=== PATIENT | female | born 1945 | race Hispanic/Latino ===

== ENCOUNTER 2020-11-24 19:05 | Inpatient (IN) | payer OTHER, MEDICARE ==
[~2020-11-24] VITALS: Ht 157.5 cm; Wt 89.8 kg
[2020-11-24] MEDS ORDERED: ASPIRIN 325 MG TABLET ONE (19:58)
[2020-11-24 20:01] LABS: BASOPHILS % (AUTO) 0.5 % (0.0-5.0); EOSINOPHILS % (AUTO) 3.3 % (0.0-8.0); HEMATOCRIT 33.1 % (36-48); LYMPHOCYTES % (AUTO) 17.6 % (21.0-51.0); MEAN CORPUSCULAR HEMOGLOBIN 29.9 pg (27.0-33.0); MEAN CORPUSCULAR HGB CONC 32.9 g/dL (32.0-36.0); MEAN CORPUSCULAR VOLUME 90.9 fL (79-99); MONOCYTES % (AUTO) 8.1 % (3.0-13.0); PLATELET COUNT (AUTO) 351 K/uL (130-400); RED BLOOD CELL COUNT(AUTO) 3.64 MIL/uL (4.00-5.50); RED CELL DISTRIBUTION WIDTH 15.9 % (11.0-15.5); WHITE BLOOD COUNT (AUTO) 8.6 K/uL (4.8-10.8)
[2020-11-24 20:09] LABS: CREATININE 1.1 mg/dL (0.5-1.5); POTASSIUM 3.8 mmol/L (3.5-5.1)
[2020-11-24 20:13] LABS: INR 0.94 (0.85-1.15); PROTHROMBIN TIME 10.3 SEC (9.6-11.6)
[2020-11-24 20:14] LABS: PARTIAL THROMBOPLASTIN TIME 24.8 SEC (26.3-35.5)
[2020-11-24 20:15] LABS: B-TYPE NATRIURETIC PEPTIDE 45 pg/mL (0-100)
[2020-11-24 20:19] LABS: ALBUMIN 3.8 g/dL (3.5-5.0); BILIRUBIN,TOTAL 1.1 mg/dL (0.2-1.0); TOTAL PROTEIN, SERUM 6.8 g/dL (6.0-8.3)
[2020-11-25 00:08] LABS: CREATINE KINASE, TOTAL 36 U/L (21-232); GAMMA GLUTAMYL TRANSFERASE 363 U/L (5-85)
[2020-11-25] MEDS ORDERED: ACETAMINOPHEN 325 MG TAB PO PRN ×2 (00:30)
[2020-11-25] MEDS ORDERED: DiphenhydrAMINE HCL 50 MG/ML VIAL IV PRN (00:30)
[2020-11-25] MEDS ORDERED: ONDANSETRON 4MG INJ IV PRN (00:30)
[2020-11-25] MEDS ORDERED: NITROGLYCERIN 0.4 MG SL TAB SL PRN (00:30)
[2020-11-25] MEDS ORDERED: MAG/ALUM/SIMETH 30 ML UDCUP PO PRN (00:30)
[2020-11-25] MEDS ORDERED: LACTATED RINGERS 1000ML 1,000 ML IV SCH (00:30)
[2020-11-25] MEDS ORDERED: LACTULOSE 20 GM/30 ML UDCUP PO PRN (00:30)
[2020-11-25] MEDS ORDERED: DIPHENHYDRAMINE HCL 25 MG CAPSULE PO PRN (00:30)
[2020-11-25] MEDS ORDERED: GUAIFENESIN-DM 200/20 MG 10 ML PO PRN (00:30)
[2020-11-25] MEDS ORDERED: DEXTROSE 50%-WATER 50 ML DISP.SYRIN IV PRN (03:45)
[2020-11-25] MEDS ORDERED: GLUCAGON 1MG KIT 1 MG ML IM PRN (03:45)
[2020-11-25] MEDS ORDERED: ZOSYN 3.375GM+NS 50ML 50 ML IV ONE (04:41)
[2020-11-25 04:56] LABS: BASOPHILS % (AUTO) 0.6 % (0.0-5.0); EOSINOPHILS % (AUTO) 4.2 % (0.0-8.0); HEMATOCRIT 32.9 % (36-48); LYMPHOCYTES % (AUTO) 14.3 % (21.0-51.0); MEAN CORPUSCULAR HEMOGLOBIN 30.3 pg (27.0-33.0); MEAN CORPUSCULAR HGB CONC 33.7 g/dL (32.0-36.0); MEAN CORPUSCULAR VOLUME 89.9 fL (79-99); MONOCYTES % (AUTO) 10.6 % (3.0-13.0); NEUTROPHILS % (AUTO) 69.9 % (40.0-77.0); PLATELET COUNT (AUTO) 339 K/uL (130-400); RED BLOOD CELL COUNT(AUTO) 3.66 MIL/uL (4.00-5.50); RED CELL DISTRIBUTION WIDTH 15.9 % (11.0-15.5); WHITE BLOOD COUNT (AUTO) 4.8 K/uL (4.8-10.8)
[2020-11-25 05:30] LABS: ALBUMIN 3.9 g/dL (3.5-5.0); BILIRUBIN,TOTAL 2.9 mg/dL (0.2-1.0); CREATININE 0.8 mg/dL (0.5-1.5); POTASSIUM 4.6 mmol/L (3.5-5.1); TOTAL PROTEIN, SERUM 6.6 g/dL (6.0-8.3)
[2020-11-25] MEDS ORDERED: LACTATED RINGERS 1000ML 1,000 ML IV ONE ×2 (06:09→22:10)
[2020-11-25 07:55] VITALS: BP 121/63
[2020-11-25 11:00] VITALS: BP 121/61
[2020-11-25] MEDS: INSULIN HUMULIN R 100 UNIT/ML 3ML SQ SCH ×3 (11:30→21:00)
[2020-11-25] MEDS: ZOSYN 3.375GM+NS 50ML 50 ML IV SCH ×2 (13:00→22:26)
[2020-11-25] MEDS: CEFTRIAXONE 1G VIAL IV SCH (13:32)
[2020-11-25] MEDS: FAMOTIDINE 20MG VIAL IV SCH ×2 (13:32→22:27)
[2020-11-25] MEDS: HEPARIN 5,000 UNIT VIAL SQ SCH ×2 (14:04→22:28)
[2020-11-25 18:43] LABS: ALBUMIN 3.9 g/dL (3.5-5.0); BILIRUBIN,TOTAL 4.2 mg/dL (0.2-1.0); CREATININE 0.8 mg/dL (0.5-1.5); POTASSIUM 3.8 mmol/L (3.5-5.1)
[2020-11-25 19:05] VITALS: BP 137/41
[2020-11-25 23:29] VITALS: BP 100/59
[2020-11-26] VITALS (8 sets, daily range): BP systolic 110–141; BP diastolic 49–76
[2020-11-26] MEDS: CEFTRIAXONE 1G VIAL IV SCH ×2 (02:00→13:35)
[2020-11-26 04:48] LABS: BASOPHILS % (AUTO) 1.3 % (0.0-5.0); EOSINOPHILS % (AUTO) 12.7 % (0.0-8.0); HEMATOCRIT 32.3 % (36-48); MEAN CORPUSCULAR HEMOGLOBIN 29.1 pg (27.0-33.0); MEAN CORPUSCULAR HGB CONC 32.2 g/dL (32.0-36.0); MEAN CORPUSCULAR VOLUME 90.2 fL (79-99); MONOCYTES % (AUTO) 10.3 % (3.0-13.0); NEUTROPHILS % (AUTO) 53.2 % (40.0-77.0); PLATELET COUNT (AUTO) 298 K/uL (130-400); RED BLOOD CELL COUNT(AUTO) 3.58 MIL/uL (4.00-5.50); RED CELL DISTRIBUTION WIDTH 15.7 % (11.0-15.5); WHITE BLOOD COUNT (AUTO) 3.8 K/uL (4.8-10.8)
[2020-11-26 05:21] LABS: ALBUMIN 3.4 g/dL (3.5-5.0); BILIRUBIN,TOTAL 2.8 mg/dL (0.2-1.0); CREATININE 0.9 mg/dL (0.5-1.5); POTASSIUM 3.4 mmol/L (3.5-5.1); TOTAL PROTEIN, SERUM 6.3 g/dL (6.0-8.3)
[2020-11-26] MEDS: ZOSYN 3.375GM+NS 50ML 50 ML IV SCH ×3 (06:02→20:51)
[2020-11-26] MEDS: INSULIN HUMULIN R 100 UNIT/ML 3ML SQ SCH ×4 (06:38→20:53)
[2020-11-26 07:17] LABS: HEPATITIS B CORE IGM Negative (Negative); HEPATITIS Bs ANTIGEN SCREEN P Negative (Negative)
[2020-11-26] MEDS: HEPARIN 5,000 UNIT VIAL SQ SCH ×2 (09:50→20:52)
[2020-11-26] MEDS: FAMOTIDINE 20MG VIAL IV SCH ×2 (09:51→20:52)
[2020-11-26] MEDS ORDERED: LIDOCAINE HCL-MPF 1% 2ML VIAL IV PRN (11:30)
[2020-11-26] MEDS ORDERED: POTASSIUM CHLORIDE 20MEQ/100ML 100 ML IV PRN (11:30)
[2020-11-27] VITALS (27 sets, daily range): BP systolic 111–160; BP diastolic 40–114
[2020-11-27] MEDS ORDERED: LACTATED RINGERS 1000ML 1,000 ML IV ONE (04:05)
[2020-11-27] MEDS: ZOSYN 3.375GM+NS 50ML 50 ML IV SCH ×3 (04:21→21:17)
[2020-11-27 05:43] LABS: BASOPHILS % (AUTO) 0.3 % (0.0-5.0); EOSINOPHILS % (AUTO) 5.7 % (0.0-8.0); LYMPHOCYTES % (AUTO) 14.4 % (21.0-51.0); MEAN CORPUSCULAR HEMOGLOBIN 29.4 pg (27.0-33.0); MEAN CORPUSCULAR HGB CONC 32.7 g/dL (32.0-36.0); MEAN CORPUSCULAR VOLUME 89.9 fL (79-99); MONOCYTES % (AUTO) 10.1 % (3.0-13.0); NEUTROPHILS % (AUTO) 69.2 % (40.0-77.0); PLATELET COUNT (AUTO) 305 K/uL (130-400); RED BLOOD CELL COUNT(AUTO) 3.67 MIL/uL (4.00-5.50); RED CELL DISTRIBUTION WIDTH 15.9 % (11.0-15.5)
[2020-11-27] MEDS: INSULIN HUMULIN R 100 UNIT/ML 3ML SQ SCH ×4 (06:25→21:00)
[2020-11-27 06:26] LABS: ALBUMIN 3.3 g/dL (3.5-5.0); BILIRUBIN,TOTAL 4.1 mg/dL (0.2-1.0); CREATININE 1.1 mg/dL (0.5-1.5); POTASSIUM 3.6 mmol/L (3.5-5.1); TOTAL PROTEIN, SERUM 6.3 g/dL (6.0-8.3)
[2020-11-27] MEDS ORDERED: IOHEXOL-350 50ML VIAL IV ONE (08:36)
[2020-11-27] MEDS ORDERED: LIDOCAINE PF 100MG/5ML (2%) SYRINGE 5ML ONE (08:47)
[2020-11-27] MEDS ORDERED: PROPOFOL 10 MG/ML 20ML VIAL IV ONE (08:47)
[2020-11-27] MEDS ORDERED: SUCCINYLCHOLINE CHLORIDE 20 MG/ML 10 ML VIAL ONE (08:47)
[2020-11-27] MEDS ORDERED: FENTANYL CITRATE PF 50 MCG/1 ML 2ML VIAL ONE (08:47)
[2020-11-27] MEDS: FAMOTIDINE 20MG VIAL IV SCH ×2 (09:17→21:17)
[2020-11-27] MEDS: HEPARIN 5,000 UNIT VIAL SQ SCH ×2 (09:17→21:00)
[2020-11-27] MEDS: POLYETHYLENE GLYCOL 3350 17 GM POWD.PACK PO SCH (09:18)
[2020-11-27] MEDS ORDERED: INDOMETHACIN 50 MG SUPP.RECT RC SCH (09:30)
[2020-11-27 21:21] LABS: INR 1.01 (0.85-1.15)
[2020-11-27 21:28] LABS: ALBUMIN 3.3 g/dL (3.5-5.0); BILIRUBIN,TOTAL 4.9 mg/dL (0.2-1.0); TOTAL PROTEIN, SERUM 6.3 g/dL (6.0-8.3)
[2020-11-28 04:05] VITALS: BP 158/75
[2020-11-28] MEDS ORDERED: LACTATED RINGERS 1000ML 1,000 ML IV ONE (04:17)
[2020-11-28] MEDS: ZOSYN 3.375GM+NS 50ML 50 ML IV SCH ×3 (05:00→21:06)
[2020-11-28 05:52] LABS: BASOPHILS % (AUTO) 0.6 % (0.0-5.0); EOSINOPHILS % (AUTO) 6.6 % (0.0-8.0); HEMATOCRIT 29.2 % (36-48); LYMPHOCYTES % (AUTO) 16.5 % (21.0-51.0); MEAN CORPUSCULAR HEMOGLOBIN 30.3 pg (27.0-33.0); MEAN CORPUSCULAR HGB CONC 34.2 g/dL (32.0-36.0); MEAN CORPUSCULAR VOLUME 88.5 fL (79-99); MONOCYTES % (AUTO) 9.1 % (3.0-13.0); NEUTROPHILS % (AUTO) 66.8 % (40.0-77.0); PLATELET COUNT (AUTO) 247 K/uL (130-400); RED CELL DISTRIBUTION WIDTH 15.9 % (11.0-15.5); WHITE BLOOD COUNT (AUTO) 5.3 K/uL (4.8-10.8)
[2020-11-28] MEDS: INSULIN HUMULIN R 100 UNIT/ML 3ML SQ SCH ×4 (06:04→21:00)
[2020-11-28 06:26] LABS: BILIRUBIN,TOTAL 4.7 mg/dL (0.2-1.0); CREATININE 0.9 mg/dL (0.5-1.5); POTASSIUM 3.8 mmol/L (3.5-5.1)
[2020-11-28 08:17] VITALS: BP 19/56
[2020-11-28] MEDS: HEPARIN 5,000 UNIT VIAL SQ SCH ×2 (09:00→19:49)
[2020-11-28] MEDS: FAMOTIDINE 20MG VIAL IV SCH ×2 (09:53→21:06)
[2020-11-28] MEDS: POLYETHYLENE GLYCOL 3350 17 GM POWD.PACK PO SCH ×2 (09:53→10:52)
[2020-11-28 11:35] VITALS: BP 152/66
[2020-11-28] MEDS ORDERED: LACTATED RINGERS 1000ML IV SCH (13:30)
[2020-11-28 16:37] VITALS: BP 149/59
[2020-11-28] MEDS ORDERED: MORPHINE 2 MG SYG IVP ONE (17:30)
[2020-11-28 20:00] VITALS: BP_SYST 130; BP_SYST 150; BP_DIAS 49; BP_DIAS 57
[2020-11-28 23:40] VITALS: BP 136/60
[2020-11-29 03:50] VITALS: BP 156/68
[2020-11-29 04:18] LABS: BASOPHILS % (AUTO) 0.4 % (0.0-5.0); EOSINOPHILS % (AUTO) 9.9 % (0.0-8.0); HEMATOCRIT 28.5 % (36-48); LYMPHOCYTES % (AUTO) 19.2 % (21.0-51.0); MEAN CORPUSCULAR HEMOGLOBIN 30.1 pg (27.0-33.0); MEAN CORPUSCULAR VOLUME 88.5 fL (79-99); MONOCYTES % (AUTO) 9.2 % (3.0-13.0); NEUTROPHILS % (AUTO) 60.9 % (40.0-77.0); PLATELET COUNT (AUTO) 237 K/uL (130-400); RED BLOOD CELL COUNT(AUTO) 3.22 MIL/uL (4.00-5.50); RED CELL DISTRIBUTION WIDTH 16.4 % (11.0-15.5); WHITE BLOOD COUNT (AUTO) 5.7 K/uL (4.8-10.8)
[2020-11-29 04:55] LABS: ALBUMIN 2.9 g/dL (3.5-5.0); BILIRUBIN,TOTAL 5.4 mg/dL (0.2-1.0); CREATININE 0.8 mg/dL (0.5-1.5); POTASSIUM 3.8 mmol/L (3.5-5.1); TOTAL PROTEIN, SERUM 5.6 g/dL (6.0-8.3)
[2020-11-29] MEDS: ZOSYN 3.375GM+NS 50ML 50 ML IV SCH ×2 (05:13→12:57)
[2020-11-29] MEDS: INSULIN HUMULIN R 100 UNIT/ML 3ML SQ SCH ×3 (06:42→16:29)
[2020-11-29 08:00] VITALS: BP 138/54
[2020-11-29] MEDS: FAMOTIDINE 20MG VIAL IV SCH (10:03)
[2020-11-29] MEDS: HEPARIN 5,000 UNIT VIAL SQ SCH (10:08)
[2020-11-29 12:00] VITALS: BP 142/61
[2020-11-29] MEDS ORDERED: PANT40TA PO (15:04)
[2020-11-29 16:00] VITALS: BP 158/66
== END 2020-11-29 18:30 | disposition home or self-care (01) | DRG 445 ==
LOC: EDH 19:05 → EDHIP 11-25 00:24 → 3CH 11-25 07:55
PROVIDERS: ADMIT Family Medicine; ATTEND Family Medicine
PROC: 0FC98ZZ Extirpation of Matter from Common Bile Duct, Via Natural or Artificial Opening Endoscopic (ICD-10-PCS; principal; 2020-11-27)
PROC: BF101ZZ Fluoroscopy of Bile Ducts using Low Osmolar Contrast (ICD-10-PCS; 2020-11-27)
DX: K80.01 Calculus of gallbladder with acute cholecystitis with obstruction (principal); E87.1 Hypo-osmolality and hyponatremia; K75.9 Inflammatory liver disease, unspecified; K44.9 Diaphragmatic hernia without obstruction or gangrene; R16.0 Hepatomegaly, not elsewhere classified; I50.9 Heart failure, unspecified; E66.01 Morbid (severe) obesity due to excess calories; K82.8 Other specified diseases of gallbladder; I11.0 Hypertensive heart disease with heart failure; E11.9 Type 2 diabetes mellitus without complications; E78.00 Pure hypercholesterolemia, unspecified; K57.90 Diverticulosis of intestine, part unspecified, without perforation or abscess without bleeding; Z68.36 Body mass index [BMI] 36.0-36.9, adult; I87.2 Venous insufficiency (chronic) (peripheral); E78.5 Hyperlipidemia, unspecified; I70.0 Atherosclerosis of aorta
CPT/HCPCS: 36415; 43262; 43264; 71045; 71250; 74176; 74181; 74328; 74330; 76705; 78226; 80053; 80074; 80076; 82140; 82550; 82948; 82977; 83036; 83690; 83880; 84484; 85025; 85610; 85730; 93005; 93306; 93356; A9537; C1769; C1773; G0378; J0330; J0696; J1644; J1815; J2001; J2405; J2543; J2704; J3010; J3480; J3490; J7120; Q9967

== ENCOUNTER 2020-12-21 07:26 | Day surgery (SDC) | payer OTHER, MEDICARE ==
[~2020-12-21] VITALS: Ht 157.5 cm; Wt 83.9 kg
[~2020-12-21 07:26] MED LIST: PANT40TA PO; SODIUM CHLORIDE 0.9% 1000ML 1,000 ML IV ONE
[2020-12-21 08:00] VITALS: BP 148/63
[2020-12-21] MEDS ORDERED: METF-444 PO (08:37)
[2020-12-21] MEDS ORDERED: fluticasone spray NASAL (08:37)
[2020-12-21] MEDS ORDERED: REFRESH OU (08:37)
[2020-12-21] MEDS ORDERED: TELM1TAB32 PO (08:37)
[2020-12-21] MEDS ORDERED: PROPOFOL 10 MG/ML 20ML VIAL IV ONE ×2 (08:55→09:18)
[2020-12-21 09:26] VITALS: BP 138/65
[2020-12-21 09:30] VITALS: BP 145/64
[2020-12-21 09:40] VITALS: BP 154/72
== END 2020-12-21 09:55 | disposition home or self-care (01) ==
LOC: ENDO 07:26 → DAH 07:26 → ENDO 09:55
PROVIDERS: ATTEND Internal Medicine Gastroenterology
DX: K59.04 Chronic idiopathic constipation (principal); Z20.822 Contact with and (suspected) exposure to COVID-19; R63.0 Anorexia; K21.00 Gastro-esophageal reflux disease with esophagitis, without bleeding; K29.70 Gastritis, unspecified, without bleeding; K63.5 Polyp of colon; I10 Essential (primary) hypertension; I25.10 Atherosclerotic heart disease of native coronary artery without angina pectoris; E78.00 Pure hypercholesterolemia, unspecified; E11.319 Type 2 diabetes mellitus with unspecified diabetic retinopathy without macular edema; Z68.36 Body mass index [BMI] 36.0-36.9, adult; Z98.890 Other specified postprocedural states; Z90.710 Acquired absence of both cervix and uterus; Z79.84 Long term (current) use of oral hypoglycemic drugs; Z79.899 Other long term (current) drug therapy
CPT/HCPCS: 43239; 45380; 82948; A4215 ×2; A4222; A4223; A4606; A4620; A4663; C9803; J2704; J7030; U0003